=== PATIENT | female | born 1975 | race Caucasian/White ===

== ENCOUNTER → 2017-06-14 | Outpatient (CLI) | payer OTHER | LOC: BMCIMAGING 13:14 | PROVIDERS: ATTEND Family Medicine | DX: Z12.31 Encounter for screening mammogram for malignant neoplasm of breast (principal) | CPT/HCPCS: G0202 ==

== ENCOUNTER 2017-07-16 09:03 | Emergency (ER) | payer OTHER ==
[2017-07-16] MEDS ORDERED: NS 1,000 ML IV ONE (10:17)
[2017-07-16 10:22] LABS: % IMMATURE GRANULYOCYTES 0.4 % (0.0-1.1); ABSOLUTE IMMATURE GRANULOCYTES 0.04 10^3/uL (0.00-0.10); ADD DIFF? NO; ADD MORPH? NO; ADD SCAN? NO; ATYPICAL LYMPHOCYTE FLAG 0 (0-99); FRAGMENT RBC FLAG 0 (0-99); HEMATOCRIT 42.3 % (38.0-47.0); HEMOGLOBIN 14.9 g/dL (12.6-16.3); LEFT SHIFT FLG 0 (0-99); LIPEMIA HEMOLYSIS FLAG 90 (0-99); MEAN CELL HEMOGLOBIN 31.8 pg (27.9-34.1); MEAN CELL HEMOGLOBIN CONCENTR. 35.2 g/dL (32.4-36.7); MEAN CELL VOLUME 90.2 fL (81.5-99.8); MEAN PLATELET VOLUME 9.7 fL (8.7-11.7); PLATELET CLUMPS FLAG 0 (0-99); PLATELET COUNT 208 10^3/uL (150-400); RED BLOOD CELL COUNT 4.69 10^6/uL (4.18-5.33); RED CELL DISTRIBUTION WIDTH 12.7 % (11.5-15.2)
--- NOTE | 2017-07-16 10:26 | EDPHY ---
H & P Smoking Status: Never smoked Time Seen by Provider: 07/16/17 09:56 HPI/ROS: CHIEF COMPLAINT: Abdominal pain HISTORY OF PRESENT ILLNESS: 42-year-old female presents to the emergency department with abrupt onset of abdominal pain that began at 5 o'clock this morning in her right lower quadrant. She states that the pain is severe at times. Denies vomiting or diarrhea. Denies chest pain or difficulty breathing. She states her last menstrual period was 3 weeks ago and then on Saturday, 4 days ago she began having some spotting. She has a history of a previous right ectopic which ruptured. She states that they removed part of her fallopian tube. She denies back pain. Denies urinary symptoms. Denies chest pain or difficulty breathing. REVIEW OF SYSTEMS: Constitutional: No fever, no chills. Eyes: No double or blurry vision. ENT: No sore throat. Respiratory: No cough, no shortness of breath. Cardiac: No chest pain. Gastrointestinal: Abdominal pain as above. No vomiting or diarrhea Genitourinary: No dysuria. Musculoskeletal: No neck or back pain. Skin: No rashes. Neurological: No headache. (Jyothi Shah) Past Medical/Surgical History: Ruptured ectopic , tonsillectomy, celiac, asthma, concussion, migraines , syncope, "toxic exposure" (Jyothi Shah) Social History: (Jyothi Shah) Physical Exam: General Appearance: Alert, no distress. Vital signs are stable. Patient is in no obvious distress. Eyes: Pupils equal and round. Extraocular motions are all intact. ENT: Mouth: Mucous membranes moist. Respiratory: No wheezing, rhonchi, or rales, lungs are clear to auscultation. Cardiovascular: Regular rate and rhythm. Gastrointestinal: Abdomen is soft. Tenderness with palpation in the right lower quadrant and right groin area. There is no rebound, guarding or masses noted. No CVA tenderness bilaterally. Neurological: Alert and oriented x 3, cranial nerves II through XII grossly intact Skin: Warm and dry, no rashes. Musculoskeletal: Nontender to palpate along the cervical, thoracic or lumbar spine. Neck is supple. Extremities: Full range of motion and no peripheral edema. Psychiatric: Patient is oriented X 3, there is no agitation. (Jyothi Shah) Constitutional: Initial Vital Signs Temperature (C) 36.3 C 07/16/17 09:09 Heart Rate 75 07/16/17 09:09 Respiratory Rate 18 07/16/17 09:09 Blood Pressure 112/80 07/16/17 09:09 O2 Sat (%) 100 07/16/17 09:09 O2 Delivery Mode Room Air Allergies/Adverse Reactions: gluten Allergy (Verified 07/16/17 09:07) Home Medications: Medication Instructions Recorded Dopatone 07/16/17 Gsh 07/16/17 Serotone 07/16/17 Medical Decision Making - Diagnostics Imaging: Discussed imaging studies w/ call center supervisor Radiologist ED Course/Re-evaluation: 42-year-old female presents with right lower quadrant abdominal pain. Ultrasound reveals no evidence of ectopic . No evidence of ovarian cyst or ovarian torsion. They were unable to visualize the appendix. Patient declined pain medication. Laboratory studies reveal normal white blood cell count and normal chemistries. Urinalysis reveals no signs of infection. The patient was reexamined multiple times. Upon discharge, however the patient had no abdominal pain. She feels that it the pain has completely resolved. I did explain that acute appendicitis could not be excluded as it was not seen on ultrasound. I recommended CT imaging, however the patient declined because her pain resolved. I recommended that the patient return to the emergency department if she developed recurring abdominal pain, vomiting, blood in her stool, fevers, or if she felt worse in any way. She was comfortable with this plan. (Jyothi Shah ) Differential Diagnosis: Including but not limited to ectopic , urinary tract infection, pyelonephritis, kidney stone, ovarian cyst, ovarian torsion, acute appendicitis (Jyothi Shah) Other Provider: The patient was evaluated and managed by the Physician Rock Wool Insulator. I discussed the patient's presentation and course with the midlevel provider with them and agree with the evaluation. My co-signature indicates that I have reviewed this chart and I agree with the findings and plan of care as documented. I am the secondary supervising physician. (Liz Redman) - Data Points Laboratory Results: Laboratory Results 07/16/17 10:00 07/16/17 10:00 Medications Given: Discontinued Medications Sodium Chloride (Ns) 1,000 mls @ 0 mls/hr IV EDNOW ONE; Wide Open PRN Reason: Protocol Stop: 07/16/17 10:18 Last Admin: 12/12/17 10:23 Dose: 1,000 mls Departure - Departure Disposition: Home, Routine, Self-Care Clinical Impression: Abdominal pain Condition: Good Instructions: Acute Abdominal Pain (ED) Additional Instructions: Abdominal Pain: Return to the Emergency Department immediately for increasing pain, fever, vomiting, or if not completely better in 8-12 hours. Referrals: Amisha Singleton MD [Primary Care Provider] - 1-2 days without fail
[2017-07-16 10:38] LABS: ANION GAP 16 mEq/L (8-16); CALCIUM 9.2 mg/dL (8.5-10.4); CARBON DIOXIDE 23 mEq/l (22-31); CHLORIDE 100 mEq/L (97-110); CREATININE 0.7 mg/dL (0.6-1.0); GLOMERULAR FILTRATION RATE > 60; GLUCOSE 94 mg/dL (70-100); SODIUM 139 mEq/L (134-144)
[2017-07-16] MEDS ORDERED: IOPAMIDOL (ISOVUE-300) 100 ML BTL ONE (11:32)
[2017-07-16 11:39] LABS: COLOR AMBER; LEUKOCYTE ESTERASE,URINE NEGATIVE (NEGATIVE); NITRITE,URINE NEGATIVE (NEGATIVE)
[2017-07-16 11:42] LABS: AMORPHOUS PRESENT /hpf (NONE-1+); BACTERIA TRACE /hpf (NONE SEEN)
[2017-07-16 11:43] LABS: WBC,URINE NONE SEEN /hpf (0-3)
[2017-07-16 13:19] VITALS: BP 125/86; PULSE 65; RESP 16; TEMP 98.2; O2SAT 97
== END 2017-07-16 13:19 | disposition home or self-care (01) ==
DX: R10.31 Right lower quadrant pain (principal); J45.909 Unspecified asthma, uncomplicated; E86.9 Volume depletion, unspecified
CPT/HCPCS: Q9967

== ENCOUNTER 2018-05-14 21:11 | Emergency (ER) | payer OTHER ==
[2018-05-14] MEDS ORDERED: NS 1,000 ML IV ONE (21:31)
[2018-05-14] MEDS ORDERED: ONDANSETRON 4 MG/2 ML VIAL IVP ONE (21:31)
[2018-05-14] MEDS ORDERED: fentaNYL 100 MCG/2 ML INJ IVP ONE ×2 (21:31→22:16)
[2018-05-14 21:43] LABS: PLATELET COUNT 204 10^3/uL (150-400)
--- NOTE | 2018-05-14 22:22 | EDPHY ---
H & P Smoking Status: Never smoked Time Seen by Provider: 05/14/18 21:24 HPI/ROS: CHIEF COMPLAINT: Right adnexal pain HISTORY OF PRESENT ILLNESS: Patient is a 43-year-old female with a history of ectopic and possible endometriosis here with right lower adnexal pain starting this afternoon. She states she started her period today and typically she does have severe pain with her periods and similar pain to today but this feels slightly worse. She denies any fever or chills or pain with urination. She did not take a home test. She states her prior ectopic was on the right side. She still has a right ovary and right fallopian tube. She reports normal appetite no fever today. REVIEW OF SYSTEMS: Constitutional: No fever, no chills. Eyes: No discharge. ENT: No sore throat. Cardiovascular: No chest pain, no palpitations. Respiratory: No cough, no shortness of breath. Gastrointestinal: + abdominal pain, no vomiting. Genitourinary: No hematuria. Musculoskeletal: No back pain. Skin: No rashes. Neurological: No headache. (Esteban Johnson) Physical Exam: General Appearance: Alert and no distress. Eyes: Pupils equal and round no injection. Respiratory: Chest is nontender, lungs are clear to auscultation. Cardiac: regular rate and rhythm. Gastrointestinal: Abdomen is soft and no tenderness to McBurney's point. She does have tenderness to the suprapubic pubic region and right adnexa. no masses , bowel sounds normal. Musculoskeletal: Neck is supple and nontender. Extremities have full range of motion and are nontender. Skin: No rashes or lesions. (Esteban Johnson) Constitutional: Initial Vital Signs Temperature (C) 36.3 C 05/14/18 21:14 Heart Rate 66 05/14/18 21:14 Respiratory Rate 18 05/14/18 21:14 Blood Pressure 105/81 H 05/14/18 21:14 O2 Sat (%) 99 05/14/18 21:14 O2 Delivery Mode Room Air Allergies/Adverse Reactions: gluten Allergy (Verified 05/14/18 21:16) Home Medications: Medication Instructions Recorded Hydrocodone/APAP 5/325 [[place] 1 tab PO Q6H PRN #10 tab 05/14/18 5/325 (*)] Suppliment 05/14/18 Medical Decision Making ED Course/Re-evaluation: Patient here with sudden onset of right adnexal pain this afternoon while starting her menstrual.. She has no pain at McBurney's point in this afebrile and has had normal appetite today. She has no leukocytosis. Have very low suspicion for appendicitis but we did discuss return to the ER if she has worsening pain in develops any fever tomorrow. Ultrasound of the pelvis shows no ovarian torsion or pelvic mass ovarian cyst. She was given IV fentanyl 50 mcg x2 and feels significantly improved. (Esteban Johnson) This patient was evaluated and managed by the physician recruiting assistant. I have reviewed the documentation and agree with the chart as written. I am the secondary supervising physician. (Idalia Rendon) Differential Diagnosis: Ovarian torsion, UTI, ectopic , menstrual cramps, appendicitis ( Esteban Johnson) - Data Points Laboratory Results: Laboratory Results 05/14/18 21:25 05/14/18 21:25 Medications Given: Discontinued Medications Fentanyl (Sublimaze) 50 mcg IVP EDNOW ONE Stop: 05/14/18 21:32 Last Admin: 05/14/18 21:39 Dose: 50 mcg Fentanyl (Sublimaze) 50 mcg IVP EDNOW ONE Stop: 05/14/18 22:17 Last Admin: 05/14/18 22:30 Dose: 50 mcg Sodium Chloride (Ns) 1,000 mls @ 0 mls/hr IV EDNOW ONE; Wide Open PRN Reason: Protocol Stop: 05/14/18 21:32 Last Admin: 05/14/18 21:38 Dose: 1,000 mls Ondansetron HCl (Zofran) 4 mg IVP ONCE ONE Stop: 05/14/18 21:32 Last Admin: 05/14/18 21:38 Dose: 4 mg Departure - Departure Disposition: Home, Routine, Self-Care Clinical Impression: Menstrual cramps Condition: Good Instructions: Dysmenorrhea (ED) Referrals: Amisha Singleton MD [Primary Care Provider] - As per Instructions Georgina Gamboa DO [Doctor of Osteopathy] - As per Instructions Prescriptions: Hydrocodone/APAP 5/325 [[place] 5/325 (*)] 1 tab PO Q6H PRN #10 tab PRN Reason: Pain, Moderate
[2018-05-14 22:25] LABS: INR 0.89 (0.83-1.16); PROTIME(PATIENT) 12.3 SEC (12.0-15.0)
[2018-05-14 23:20] VITALS: BP 104/67
== END 2018-05-14 23:20 | disposition home or self-care (01) ==
DX: N94.6 Dysmenorrhea, unspecified (principal)
CPT/HCPCS: 96374; J2405; J3010

== ENCOUNTER → 2018-07-03 | Outpatient (CLI) | payer OTHER | LOC: BMCIMAGING 17:15 | PROVIDERS: ATTEND Family Medicine | DX: M54.9 Dorsalgia, unspecified (principal) ==

== ENCOUNTER → 2018-07-04 | Outpatient (CLI) | payer OTHER | LOC: FIMAGING 17:07 | PROVIDERS: ATTEND Family Medicine | DX: M51.36 Other intervertebral disc degeneration, lumbar region (principal); R60.9 Edema, unspecified ==